=== PATIENT | male | born 1950 | race Caucasian/White ===

== ENCOUNTER 2020-04-22 11:13 | Emergency (ER) | payer MEDICARE, BC ==
[2020-04-22] MEDS ORDERED: Bacitracin Oint 1 GM U/D Packet TOP ONE (11:31)
[2020-04-22 11:34] VITALS: BP 146/80; PULSE 79
--- NOTE | 2020-04-22 11:39 | EDM.PDOC ---
ED HPI GENERAL MEDICAL PROBLEM - General Chief Complaint: Laceration Stated Complaint: INJURED FINGER WHILE USING A METAL LATHE Time Seen by Provider: 04/22/20 11:25 Source of Information: Reports: Patient, Old Records History Limitations: Reports: No Limitations - History of Present Illness INITIAL COMMENTS - FREE TEXT/NARRATIVE: 69 yo male incurred an approx 3 cm flap laceration to his R long finger last night about 6 pm. Comes in today nearly 18 hrs later for evaluation. His tetanus is UTD. He cleaned with with soap and water last night. Injury with a saw at home. Onset: Sudden Onset Date: 04/21/20 Onset Time: 18:00 Duration: Hour(s): (17.5), Constant Location: Reports: Upper Extremity, Right Quality: Reports: Dull Severity: Mild Improves with: Reports: Rest Worsens with: Reports: Movement Context: Reports: Trauma Associated Symptoms: Reports: No Other Symptoms Treatments ASSISTANT DIRECTOR: Reports: Other (see below) (See HPI) - Related Data Allergies Allergy/AdvReac Type Severity Reaction Status Date / Time No Known Allergies Allergy Verified 04/22/20 11:35 Home Meds: Home Meds Aspirin 81 mg PO DAILY 08/16/15 [History] Hydrochlorothiazide 25 mg PO DAILY 08/16/15 [History] Meloxicam [Mobic] 15 mg PO DAILY 08/16/15 [History] Metoprolol Tartrate [Lopressor] 25 mg PO Q12HR 08/16/15 [History] Mirtazapine [Remeron] 30 mg PO BEDTIME 08/16/15 [History] Venlafaxine [Effexor XR] 150 mg PO DAILY 08/16/15 [History] atorvaSTATin [Lipitor] 40 mg PO DAILY 08/16/15 [History] cephALEXin [Cephalexin] 500 mg PO QID #28 capsule 04/22/20 [Rx] Past Medical History Other Musculoskeletal History: degenerative changes - Past Surgical History Other HEENT Surgeries/Procedures: wisdom teeth extraction ED ROS GENERAL - Review of Systems Review Of Systems: See Below Constitutional: Reports: No Symptoms Respiratory: Reports: No Symptoms Cardiovascular: Reports: No Symptoms GI/Abdominal: Reports: No Symptoms Musculoskeletal: Reports: No Symptoms Skin: Reports: Wound (flap laceration to the R long finger. ) Neurological: Reports: No Symptoms ED EXAM, SKIN/RASH Exam: See Below Exam Limited By: No Limitations General Appearance: Alert, WD/WN, No Apparent Distress Extremities: Normal Range of Motion, No Pedal Edema, Other (slight puffiness proximal to the injury). No: Non-Tender, Pedal Edema, Joint Swelling, Limited Range of Motion, Increased Warmth, Redness Neurological: Alert, Oriented, CN II-XII Intact, Normal Cognition, No Motor/ Sensory Deficits Psychiatric: Normal Affect, Normal Mood Skin: Warm, Dry, Normal Color, No Rash, Wound/Incision (3.25 cm flap laceration to the R long finger, skin is now tightly adherent to its base due to the duration of elapsed time since the injury. ) Location, Skin: Upper Extremity, Right (long finger, medially at level of the PIP jt.) Characteristics: Linear (slightly eliptical) Associated features: Tenderness. No: Warmth, Lymphangitis Course - Vital Signs Text/Narrative:: wound cleaned and dressed by nursing. Last Recorded V/S: Last Vital Signs Temp 36.9 C 04/22/20 11:37 Pulse 79 04/22/20 11:37 Resp 16 04/22/20 11:37 BP 146/80 H 04/22/20 11:37 Pulse Ox 95 04/22/20 11:37 - Orders/Labs/Meds Orders: Active Orders 24 hr Category Date Time Status Fingers Third Digit Rt F7 [CR] Stat Exams 04/22/20 11:47 Ordered Meds: Medications Discontinued Medications Generic Name Dose Route Start Last Admin Trade Name Freq PRN Reason Stop Dose Admin Bacitracin 1 dose 04/22/20 11:31 Bacitracin Oint 1 Gm TOP 04/22/20 11:32 ONETIME ONE - Radiology Interpretation Free Text/Narrative:: R 3rd finger X-ray-neg Departure - Departure Time of Disposition: 12:05 Disposition: Home, Self-Care 01 Condition: Good Clinical Impression: Laceration of finger of right hand Qualifiers: Encounter type: initial encounter Finger: middle finger Damage to nail status: without damage Foreign body presence: without foreign body Qualified Code(s): S61.212A - Laceration without foreign body of right middle finger without damage to nail, initial encounter - Discharge Information *PRESCRIPTION DRUG MONITORING PROGRAM REVIEWED*: No *COPY OF PRESCRIPTION DRUG MONITORING REPORT IN PATIENT MOISES: No Prescriptions: cephALEXin [Cephalexin] 500 mg PO QID #28 capsule Instructions: Laceration Care, Adult, [id number] Referrals: PCP,None [Primary Care Provider] - Forms: ED Department Discharge Additional Instructions: Clean your wound(s) twice a day with soap and water. Dry. Apply antibiotic ointment and a new dressing. Take acetaminophen as needed for pain relief. Take cephalexin as directed(Rx to [facility]). Recheck in the clinic of your wound in the next 1-2 days. Keep wounds clean x 3 days. Sepsis Event Note - Focused Exam Vital Signs: Vital Signs Temp Pulse Resp BP Pulse Ox 04/22/20 11:37 36.9 C 79 16 146/80 H 95 04/22/20 11:33 36.9 C 79 16 146/80 H 95 Date Exam was Performed: 04/22/20 Time Exam was Performed: 12:01 - My Orders Last 24 Hours: My Active Orders 04/22/20 11:47 Fingers Third Digit Rt F7 [CR] Stat - Assessment/Plan Last 24 Hours: My Active Orders 04/22/20 11:47 Fingers Third Digit Rt F7 [CR] Stat
--- NOTE | 2020-04-23 09:28 | CR ---
Fingers Third Digit Rt F7 CLINICAL HISTORY: Injury, possible foreign body FINDINGS: There is some soft tissue swelling suggested around the third PIP joint. No fracture or osseous lesion is seen. Articular surfaces are smooth. There is no radiopaque foreign body IMPRESSION: Soft tissue swelling near the PIP joint No foreign body or fracture seen
== END 2020-04-22 12:13 | disposition home or self-care (01) ==
LOC: JP.ED 11:13
DX: S61.212A Laceration without foreign body of right middle finger without damage to nail, initial encounter (principal); Z79.82 Long term (current) use of aspirin; Z79.899 Other long term (current) drug therapy; W27.0XXA Contact with workbench tool, initial encounter; Y92.009 Unspecified place in unspecified non-institutional (private) residence as the place of occurrence of the external cause
CPT/HCPCS: 73140-26-F7; 73140-F7; 99283-25